=== PATIENT | female | born 1970 | race Caucasian/White ===

== ENCOUNTER 2024-09-13 06:37 | Emergency (ER) | payer OTHER, MEDICAID, SELFPAY ==
[2024-09-13] VITALS (40 sets, daily range): BP systolic 135–217; BP diastolic 81–128; PULSE 48–82; RESP 16–24; TEMP 36.3; O2SAT 87–100; BMI 27.4
--- NOTE | 2024-09-13 06:45 | EKG_ITS ---
[address] [address] Test Date: 2024-09-13 Pat Name: Alida Morelos Department: [facility] Room: Gender: Male [employer]: GENOVEVA JACQUI : 1970 Requested By: Order Number: [id number] Reading MD: John Lindsey Measurements Intervals Edwards Rate: 62 P: 52 DE: 148 QRS: 31 QRSD: 80 T: 43 QT: 458 QTc: 464 Interpretive Statements Normal sinus rhythm Electronically Signed On 09-19-2024 17:53:55 PDT by John Lindsey
--- NOTE | 2024-09-13 06:51 | DI.RAD.S_ITS ---
PROCEDURE: XR CHEST 1V INDICATIONS: Chest Pain TECHNIQUE: One view of the chest was acquired. COMPARISON: None. FINDINGS: Surgical changes and devices: None. Lungs and pleura: Lungs are clear. No pleural effusions or pneumothorax. Mediastinum: Mediastinal contours appear normal. Heart size is normal. Bones and chest wall: No suspicious bony lesions. Overlying soft tissues appear unremarkable. IMPRESSION: No acute cardiopulmonary pathology. No discrepancies. Dictated by: Peter Starr M.D. on 09/13/2024 at 9:00 Approved by: Peter Starr M.D. on 09/13/2024 at 9:00
--- NOTE | 2024-09-13 06:52 | ED.CHESTPAIN ---
HPI - Chest Pain <Hardy Brooks, DO - Last Filed: 09/13/24 19:31> General Chief Complaint: Chest Pain Stated Complaint: Chest and upper back pain; burining in chest Time Seen by Provider: 09/13/24 06:46 Source: patient Mode of arrival: Wheelchair Limitations: no limitations History of Present Illness HPI narrative: 54-year-old female history of GERD dyslipidemia elevated blood pressure and meth user presents with sudden onset chest pain radiating to the middle of the back. She endorses using meth 2 days ago. Patient states she had a similar presentation a few weeks ago when she was admitted 10 days to [facility] for elevated blood pressure chest pain radiating to the back but was not discharged on any blood pressure medicines. Patient states pain is sharp constant pain 10/10 and it takes her breath away from her. Nothing makes it better or worse. Other than what is stated 14 point review of system is negative. Related Data Home Medications ?Medication ?Instructions ?Recorded ?Confirmed atorvastatin 40 mg tablet 40 mg PO ONCE PM 09/13/24 09/13/24 omeprazole 40 mg capsule,delayed 40 mg PO QAM 09/13/24 09/13/24 release pantoprazole 40 mg tablet,delayed 40 mg PO QAM 09/13/24 09/13/24 release Allergies Allergy/AdvReac Type Severity Reaction Status Date / Time No Known Drug Allergies Allergy Verified 09/13/24 06:43 Review of Systems <Hardy Brooks, DO - Last Filed: 09/13/24 19:31> Review of Systems ROS Unobtainable: All systems reviewed & are unremarkable except as noted in HPI and below Patient History <Hardy Brooks DO - Last Filed: 09/13/24 19:31> Social History Smoking Status: Current every day smoker Smoking Status: Current every day smoker Exam <Hardy Brooks DO - Last Filed: 09/13/24 19:31> Narrative Exam Narrative: GENERAL: [54] year old patient appears stated age. Well-developed patient, in mild distress. HEAD: Atraumatic. Normocephalic. EYES: Pupils equal round and reactive. Extraocular motions intact. No scleral icterus. No injection or drainage. ENT: Nose without bleeding, purulent drainage. Throat without erythema, tonsillar hypertrophy or exudate. Airway patent. NECK: Trachea midline. Non tender CARDIOVASCULAR: Regular rate and rhythm without murmurs, gallops, or rubs. RESPIRATORY: Clear to auscultation. Breath sounds equal bilaterally. No wheezes, rales, or rhonchi. GASTROINTESTINAL: Abdomen soft, non-tender, nondistended. EXTREMITIES: No edema or joint tenderness. BACK: Nontender without deformity or crepitance. No flank tenderness. NEURO: AOx3. SKIN: No rash or erythema of visible areas Initial Vital Signs Initial Vital Signs: Vital Signs Temperature 97.4 F L 09/13/24 06:43 Pulse Rate 62 09/13/24 06:43 Respiratory Rate 24 09/13/24 06:43 Blood Pressure 212/105 H 09/13/24 06:43 Pulse Oximetry 100 09/13/24 06:43 Oxygen Delivery Method Room Air 09/13/24 06:43 <Sawyer Jimenez MD - Last Filed: 09/14/24 07:12> Initial Vital Signs Initial Vital Signs: Vital Signs Temperature 97.4 F L 09/13/24 06:43 Pulse Rate 62 09/13/24 06:43 Respiratory Rate 24 09/13/24 06:43 Blood Pressure 212/105 H 09/13/24 06:43 Pulse Oximetry 100 09/13/24 06:43 Oxygen Delivery Method Room Air 09/13/24 06:43 <Marco Aburto MD - Last Filed: 09/14/24 02:50> Initial Vital Signs Initial Vital Signs: Vital Signs Temperature 97.4 F L 09/13/24 06:43 Pulse Rate 62 09/13/24 06:43 Respiratory Rate 24 09/13/24 06:43 Blood Pressure 212/105 H 09/13/24 06:43 Pulse Oximetry 100 09/13/24 06:43 Oxygen Delivery Method Room Air 09/13/24 06:43 Course <Hardy Brooks DO - Last Filed: 09/13/24 19:31> Orders Ordered: Discontinued Medications Aspirin (Aspirin 81 Mg Chew Tab) 324 mg PO NOW ONE Stop: 09/13/24 06:52 Last Admin: 09/13/24 08:10 Dose: 324 mg Documented By: BT Hydralazine HCl (Hydralazine 20 Mg/Ml Vial) 10 mg IV Q6HR PRN PRN Reason: Hypertension Last Admin: 09/13/24 19:21 Dose: 10 mg Documented By: Admin: 09/13/24 08:09 Dose: 10 mg Documented By: BT Hydromorphone HCl (Hydromorphone 1 Mg Inj) 1 mg IV NOW ONE Stop: 09/13/24 08:27 Last Admin: 09/13/24 08:34 Dose: 1 mg Documented By: JESUS Hydromorphone HCl (Hydromorphone 1 Mg Inj) 1 mg IV NOW ONE Stop: 09/13/24 15:24 Last Admin: 09/13/24 15:29 Dose: 1 mg Documented By: JESUS Hydromorphone HCl (Hydromorphone Hcl 0.5 Mg/0.5 Ml Syringe) 0.5 mg IV NOW ONE Stop: 09/13/24 19:49 Last Admin: 09/13/24 20:04 Dose: 0.5 mg Documented By: RLDexter Hydromorphone HCl (Hydromorphone Hcl 0.5 Mg/0.5 Ml Syringe) 0.5 mg IV NOW ONE Stop: 09/13/24 19:58 Last Admin: 09/13/24 20:56 Dose: 0.5 mg Documented By: RLDexter Sodium Chloride (Normal Saline 0.9%) 1,000 mls @ 1,000 mls/hr IV BOLUS ONE Stop: 09/13/24 20:43 Last Infusion: 09/13/24 20:57 Dose: Infused Documented By: Admin: 09/13/24 19:48 Dose: 1,000 mls/hr Documented By: RLDexter Lactated Ringer's (Lactated Ringers) 1,000 mls @ 125 mls/hr IV CONT THOMPSON Last Infusion: 09/13/24 20:57 Dose: Infused Documented By: Admin: 09/13/24 19:48 Dose: 125 mls/hr Documented By: RLDexter Morphine Sulfate (Morphine 2 Mg/Ml Inj) 2 mg IV Q2HR PRN PRN Reason: Pain, Moderate (4-6) Last Admin: 09/13/24 19:22 Dose: 2 mg Documented By: Admin: 09/13/24 07:36 Dose: 2 mg Documented By: ATTILA Pantoprazole Sodium (Pantoprazole 40 Mg Vial) 40 mg IV NOW ONE Stop: 09/13/24 08:27 Last Admin: 09/13/24 08:33 Dose: 40 mg Documented By: BT Vital Signs Vital signs: Vital Signs - 8 hr 09/13/24 19:00 09/13/24 19:00 09/13/24 19:21 Pulse Rate 60 68 Respiratory Rate Blood Pressure 187/104 H 187/104 H Pulse Oximetry 97 Oxygen Delivery Method 09/13/24 19:26 09/13/24 19:26 09/13/24 19:30 Pulse Rate 70 Respiratory Rate Blood Pressure 170/99 H 155/94 H Pulse Oximetry 98 Oxygen Delivery Method 09/13/24 19:30 09/13/24 20:00 09/13/24 20:00 Pulse Rate 71 82 Respiratory Rate 21 Blood Pressure 145/85 H Pulse Oximetry 99 96 Oxygen Delivery Method Room Air 09/13/24 20:05 09/13/24 20:30 09/13/24 20:30 Pulse Rate 82 81 Respiratory Rate 17 Blood Pressure 145/85 H 135/82 Pulse Oximetry 93 Oxygen Delivery Method <Sawyer Jimenez MD - Last Filed: 09/14/24 07:12> Course Course Narrative: So far cardiac workup is negative. Patient is still in pain and so will add some morphine to help with her pain. Hydralazine will be used to try to lower her blood pressure due to her borderline bradycardia. A D-dimer was added as well. Orders Ordered: Discontinued Medications Aspirin (Aspirin 81 Mg Chew Tab) 324 mg PO NOW ONE Stop: 09/13/24 06:52 Last Admin: 09/13/24 08:10 Dose: 324 mg Documented By: JESUS Hydralazine HCl (Hydralazine 20 Mg/Ml Vial) 10 mg IV Q6HR PRN PRN Reason: Hypertension Last Admin: 09/13/24 19:21 Dose: 10 mg Documented By: Admin: 09/13/24 08:09 Dose: 10 mg Documented By: BT Hydromorphone HCl (Hydromorphone 1 Mg Inj) 1 mg IV NOW ONE Stop: 09/13/24 08:27 Last Admin: 09/13/24 08:34 Dose: 1 mg Documented By: BT Hydromorphone HCl (Hydromorphone 1 Mg Inj) 1 mg IV NOW ONE Stop: 09/13/24 15:24 Last Admin: 09/13/24 15:29 Dose: 1 mg Documented By: BT Hydromorphone HCl (Hydromorphone Hcl 0.5 Mg/0.5 Ml Syringe) 0.5 mg IV NOW ONE Stop: 09/13/24 19:49 Last Admin: 09/13/24 20:04 Dose: 0.5 mg Documented By: RLC Hydromorphone HCl (Hydromorphone Hcl 0.5 Mg/0.5 Ml Syringe) 0.5 mg IV NOW ONE Stop: 09/13/24 19:58 Last Admin: 09/13/24 20:56 Dose: 0.5 mg Documented By: RLC Sodium Chloride (Normal Saline 0.9%) 1,000 mls @ 1,000 mls/hr IV BOLUS ONE Stop: 09/13/24 20:43 Last Infusion: 09/13/24 20:57 Dose: Infused Documented By: Admin: 09/13/24 19:48 Dose: 1,000 mls/hr Documented By: RLC Lactated Ringer's (Lactated Ringers) 1,000 mls @ 125 mls/hr IV CONT THOMPSON Last Infusion: 09/13/24 20:57 Dose: Infused Documented By: Admin: 09/13/24 19:48 Dose: 125 mls/hr Documented By: RLC Morphine Sulfate (Morphine 2 Mg/Ml Inj) 2 mg IV Q2HR PRN PRN Reason: Pain, Moderate (4-6) Last Admin: 09/13/24 19:22 Dose: 2 mg Documented By: Admin: 09/13/24 07:36 Dose: 2 mg Documented By: ATTILA Pantoprazole Sodium (Pantoprazole 40 Mg Vial) 40 mg IV NOW ONE Stop: 09/13/24 08:27 Last Admin: 09/13/24 08:33 Dose: 40 mg Documented By: BT Reevaluation(s) Reevaluation #1: Upon re-evaluation, patient is still in some pain and MRCP did confirm a choledocholelithiasis picture measuring up to 3mm in size Reevaluation #2: Awaiting GI for ERCP. Patient is signed out to next physician Dr. Aburto Vital Signs Vital signs: Vital Signs - 8 hr 09/13/24 19:00 09/13/24 19:00 09/13/24 19:21 Pulse Rate 60 68 Respiratory Rate Blood Pressure 187/104 H 187/104 H Pulse Oximetry 97 Oxygen Delivery Method 09/13/24 19:26 09/13/24 19:26 09/13/24 19:30 Pulse Rate 70 Respiratory Rate Blood Pressure 170/99 H 155/94 H Pulse Oximetry 98 Oxygen Delivery Method 09/13/24 19:30 09/13/24 20:00 09/13/24 20:00 Pulse Rate 71 82 Respiratory Rate 21 Blood Pressure 145/85 H Pulse Oximetry 99 96 Oxygen Delivery Method Room Air 09/13/24 20:05 09/13/24 20:30 09/13/24 20:30 Pulse Rate 82 81 Respiratory Rate 17 Blood Pressure 145/85 H 135/82 Pulse Oximetry 93 Oxygen Delivery Method <Marco Aburto MD - Last Filed: 09/14/24 02:50> Orders Ordered: Discontinued Medications Aspirin (Aspirin 81 Mg Chew Tab) 324 mg PO NOW ONE Stop: 09/13/24 06:52 Last Admin: 09/13/24 08:10 Dose: 324 mg Documented By: BT Hydralazine HCl (Hydralazine 20 Mg/Ml Vial) 10 mg IV Q6HR PRN PRN Reason: Hypertension Last Admin: 09/13/24 19:21 Dose: 10 mg Documented By: Admin: 09/13/24 08:09 Dose: 10 mg Documented By: BT Hydromorphone HCl (Hydromorphone 1 Mg Inj) 1 mg IV NOW ONE Stop: 09/13/24 08:27 Last Admin: 09/13/24 08:34 Dose: 1 mg Documented By: BT Hydromorphone HCl (Hydromorphone 1 Mg Inj) 1 mg IV NOW ONE Stop: 09/13/24 15:24 Last Admin: 09/13/24 15:29 Dose: 1 mg Documented By: BT Hydromorphone HCl (Hydromorphone Hcl 0.5 Mg/0.5 Ml Syringe) 0.5 mg IV NOW ONE Stop: 09/13/24 19:49 Last Admin: 09/13/24 20:04 Dose: 0.5 mg Documented By: [facility] Hydromorphone HCl (Hydromorphone Hcl 0.5 Mg/0.5 Ml Syringe) 0.5 mg IV NOW ONE Stop: 09/13/24 19:58 Last Admin: 09/13/24 20:56 Dose: 0.5 mg Documented By: RLC Sodium Chloride (Normal Saline 0.9%) 1,000 mls @ 1,000 mls/hr IV BOLUS ONE Stop: 09/13/24 20:43 Last Infusion: 09/13/24 20:57 Dose: Infused Documented By: Admin: 09/13/24 19:48 Dose: 1,000 mls/hr Documented By: RLC Lactated Ringer's (Lactated Ringers) 1,000 mls @ 125 mls/hr IV CONT THOMPSON Last Infusion: 09/13/24 20:57 Dose: Infused Documented By: Admin: 09/13/24 19:48 Dose: 125 mls/hr Documented By: RLC Morphine Sulfate (Morphine 2 Mg/Ml Inj) 2 mg IV Q2HR PRN PRN Reason: Pain, Moderate (4-6) Last Admin: 09/13/24 19:22 Dose: 2 mg Documented By: Admin: 09/13/24 07:36 Dose: 2 mg Documented By: ATTILA Pantoprazole Sodium (Pantoprazole 40 Mg Vial) 40 mg IV NOW ONE Stop: 09/13/24 08:27 Last Admin: 09/13/24 08:33 Dose: 40 mg Documented By: BT Vital Signs Vital signs: Vital Signs - 8 hr 09/13/24 19:00 09/13/24 19:00 09/13/24 19:21 Pulse Rate 60 68 Respiratory Rate Blood Pressure 187/104 H 187/104 H Pulse Oximetry 97 Oxygen Delivery Method 09/13/24 19:26 09/13/24 19:26 09/13/24 19:30 Pulse Rate 70 Respiratory Rate Blood Pressure 170/99 H 155/94 H Pulse Oximetry 98 Oxygen Delivery Method 09/13/24 19:30 09/13/24 20:00 09/13/24 20:00 Pulse Rate 71 82 Respiratory Rate 21 Blood Pressure 145/85 H Pulse Oximetry 99 96 Oxygen Delivery Method Room Air 09/13/24 20:05 09/13/24 20:30 09/13/24 20:30 Pulse Rate 82 81 Respiratory Rate 17 Blood Pressure 145/85 H 135/82 Pulse Oximetry 93 Oxygen Delivery Method MDM - Chest Pain <Hardy Brooks DO - Last Filed: 09/13/24 19:31> Lab Data 09/13/24 06:45 09/13/24 06:45 Labs: Lab Results 09/13/24 09/13/24 09/13/24 Range/Units 06:45 08:05 08:05 WBC 10.2 (4.5-11.0) X10^3/uL RBC 4.91 (4.0-5.2) X10^6/uL Hgb 14.3 (12.0-16.0) g/dL Hct 41.3 (36-46) % MCV 84.2 (80-100) fL MCH 29.2 (26-34) PG MCHC 34.6 (30-36) % RDW 13.3 (11.6-14.8) % Plt Count 316 (150-400) X10^3/uL Neut % (Auto) 62.1 (50-75) % Lymph % (Auto) 27.8 (25-40) % [place] % (Auto) 7.1 (3-14) % Eos % (Auto) 1.8 L (2-4) % Baso % (Auto) 1.2 (0-2) % Neut # (Auto) 6300 (7433-1399) /uL Lymph # (Auto) 2800 (2944-9364) /uL [place] # (Auto) 700 (0-900) /uL Eos # (Auto) 200 (0-450) /uL Baso # (Auto) 100 (0-100) /uL PT 11.4 (9.4-12.5) SECONDS INR 1.0 (0.9-1.3) APTT 28 (25.1-36.5) SECONDS D-Dimer 318 (<500) ng/ml Sodium 139 (137-145) mmol/L Potassium 3.8 (3.4-5.1) mmol/L Chloride 104 (98-107) mmol/L Carbon Dioxide 27 (22-32) mmol/L BUN 14 (7-17) mg/dL Creatinine 0.72 (0.52-1.04) mg/dL Estimated GFR > 60 (>60) mL/min BUN/Creatinine Ratio 19.4 (6-22) Glucose 93 (70-99) mg/dL Calcium 9.5 (8.4-10.2) mg/dL Magnesium 1.9 (1.6-2.3) mg/dL Total Bilirubin 0.4 (0.2-1.3) mg/dL AST 37 H (14-36) IU/L ALT 59 H (<35) IU/L Alkaline Phosphatase 149 H (38-126) U/L Total Creatine Kinase 50 (30-135) U/L Troponin I < 0.012 (0.01-0.034) ng/mL NT-Pro-B Natriuret Pep 36 (<125) pg/mL Total Protein 8.1 (6.3-8.2) g/dL Albumin 4.3 (3.5-5.0) g/dL Globulin 3.8 (1.7-4.1) g/dL Albumin/Globulin Ratio 1.1 (1.0-2.8) Lipase 67 (23-300) U/L Urine Color Yellow Urine Appearance Sl cloudy Urine pH 6.5 Normal (4.5-8.0) Ur Specific [place] 1.010 (1.000-1.035) Urine Protein Negative (Negative) Urine Glucose (UA) Negative (Negative) g/dL Urine Ketones Negative (NEGATIVE) Urine Occult Blood Negative (Negative) Urine Nitrate Negative (Negative) Urine Bilirubin Negative (NEGATIVE) Urine Urobilinogen 0.2 (0.2) E.U./dL Ur Leukocyte Esterase Negative (NEGATIVE) Urine RBC 0-1/hpf (0-5/HPF) Urine WBC 0-1/hpf (0-5/HPF) Ur Squamous Epith Cells 1-5 /hpf (0-5/HPF) Amorphous Sediment 2+ Urine Bacteria Occasional (0-1) (None) Ur Culture Indicated? Cult not indicated Vol Urine Centrifuged 10ml (spun) U Opiates 300ng/mL cut Negative (Negative) Ur Oxycodone Screen Negative (Negative) Urine Methadone Screen Negative (Negative) Ur Barbiturates Screen Negative (Negative) U Tricyclic Antidepress Negative (Negative) Ur Phencyclidine Scrn Negative (Negative) Ur Amphetamines Screen Positive H (Negative) U Methamphetamines Scrn Positive H (Negative) Ur MDMA Scrn (Ecstasy) Negative (Negative) U Benzodiazepines Scrn Negative (Negative) Urine Cocaine Screen Negative (Negative) U Marijuana (THC) Screen Negative (Negative) Urine Specific [place] Normal (Normal) Ur Creatinine Normal (Normal) 09/13/24 Range/Units 09:15 WBC (4.5-11.0) X10^3/uL RBC (4.0-5.2) X10^6/uL Hgb (12.0-16.0) g/dL Hct (36-46) % MCV (80-100) fL MCH (26-34) PG MCHC (30-36) % RDW (11.6-14.8) % Plt Count (150-400) X10^3/uL Neut % (Auto) (50-75) % Lymph % (Auto) (25-40) % [place] % (Auto) (3-14) % Eos % (Auto) (2-4) % Baso % (Auto) (0-2) % Neut # (Auto) (4471-8237) /uL Lymph # (Auto) (5503-2556) /uL [place] # (Auto) (0-900) /uL Eos # (Auto) (0-450) /uL Baso # (Auto) (0-100) /uL PT (9.4-12.5) SECONDS INR (0.9-1.3) APTT (25.1-36.5) SECONDS D-Dimer (<500) ng/ml Sodium (137-145) mmol/L Potassium (3.4-5.1) mmol/L Chloride (98-107) mmol/L Carbon Dioxide (22-32) mmol/L BUN (7-17) mg/dL Creatinine (0.52-1.04) mg/dL Estimated GFR (>60) mL/min BUN/Creatinine Ratio (6-22) Glucose (70-99) mg/dL Calcium (8.4-10.2) mg/dL Magnesium (1.6-2.3) mg/dL Total Bilirubin (0.2-1.3) mg/dL AST (14-36) IU/L ALT (<35) IU/L Alkaline Phosphatase (38-126) U/L Total Creatine Kinase (30-135) U/L Troponin I < 0.012 (0.01-0.034) ng/mL NT-Pro-B Natriuret Pep (<125) pg/mL Total Protein (6.3-8.2) g/dL Albumin (3.5-5.0) g/dL Globulin (1.7-4.1) g/dL Albumin/Globulin Ratio (1.0-2.8) Lipase (23-300) U/L Urine Color Urine Appearance Urine pH (4.5-8.0) Ur Specific [place] (1.000-1.035) Urine Protein (Negative) Urine Glucose (UA) (Negative) g/dL Urine Ketones (NEGATIVE) Urine Occult Blood (Negative) Urine Nitrate (Negative) Urine Bilirubin (NEGATIVE) Urine Urobilinogen (0.2) E.U./dL Ur Leukocyte Esterase (NEGATIVE) Urine RBC (0-5/HPF) Urine WBC (0-5/HPF) Ur Squamous Epith Cells (0-5/HPF) Amorphous Sediment Urine Bacteria (None) Ur Culture Indicated? Vol Urine Centrifuged U Opiates 300ng/mL cut (Negative) Ur Oxycodone Screen (Negative) Urine Methadone Screen (Negative) Ur Barbiturates Screen (Negative) U Tricyclic Antidepress (Negative) Ur Phencyclidine Scrn (Negative) Ur Amphetamines Screen (Negative) U Methamphetamines Scrn (Negative) Ur MDMA Scrn (Ecstasy) (Negative) U Benzodiazepines Scrn (Negative) Urine Cocaine Screen (Negative) U Marijuana (THC) Screen (Negative) Urine Specific [place] (Normal) Ur Creatinine (Normal) ECG Data Interpretation: NSR HR 62 NV 148 QRS [address]-t wave change No previous EKG to compare against MDM Narrative Medical decision making narrative: Pt s/o to at shift change pending final disposition <Sawyer Jimenez MD - Last Filed: 09/14/24 07:12> Differential Diagnosis Differential diagnosis: Likely unstable angina pectoris and other (cholecystitis, choledocholelithiasis ) Lab Data Labs: Lab Results 09/13/24 09/13/24 09/13/24 Range/Units 06:45 08:05 08:05 WBC 10.2 (4.5-11.0) X10^3/uL RBC 4.91 (4.0-5.2) X10^6/uL Hgb 14.3 (12.0-16.0) g/dL Hct 41.3 (36-46) % MCV 84.2 (80-100) fL MCH 29.2 (26-34) PG MCHC 34.6 (30-36) % RDW 13.3 (11.6-14.8) % Plt Count 316 (150-400) X10^3/uL Neut % (Auto) 62.1 (50-75) % Lymph % (Auto) 27.8 (25-40) % [place] % (Auto) 7.1 (3-14) % Eos % (Auto) 1.8 L (2-4) % Baso % (Auto) 1.2 (0-2) % Neut # (Auto) 6300 (0219-6167) /uL Lymph # (Auto) 2800 (4790-5729) /uL [place] # (Auto) 700 (0-900) /uL Eos # (Auto) 200 (0-450) /uL Baso # (Auto) 100 (0-100) /uL PT 11.4 (9.4-12.5) SECONDS INR 1.0 (0.9-1.3) APTT 28 (25.1-36.5) SECONDS D-Dimer 318 (<500) ng/ml Sodium 139 (137-145) mmol/L Potassium 3.8 (3.4-5.1) mmol/L Chloride 104 (98-107) mmol/L Carbon Dioxide 27 (22-32) mmol/L BUN 14 (7-17) mg/dL Creatinine 0.72 (0.52-1.04) mg/dL Estimated GFR > 60 (>60) mL/min BUN/Creatinine Ratio 19.4 (6-22) Glucose 93 (70-99) mg/dL Calcium 9.5 (8.4-10.2) mg/dL Magnesium 1.9 (1.6-2.3) mg/dL Total Bilirubin 0.4 (0.2-1.3) mg/dL AST 37 H (14-36) IU/L ALT 59 H (<35) IU/L Alkaline Phosphatase 149 H (38-126) U/L Total Creatine Kinase 50 (30-135) U/L Troponin I < 0.012 (0.01-0.034) ng/mL NT-Pro-B Natriuret Pep 36 (<125) pg/mL Total Protein 8.1 (6.3-8.2) g/dL Albumin 4.3 (3.5-5.0) g/dL Globulin 3.8 (1.7-4.1) g/dL Albumin/Globulin Ratio 1.1 (1.0-2.8) Lipase 67 (23-300) U/L Urine Color Yellow Urine Appearance Sl cloudy Urine pH 6.5 Normal (4.5-8.0) Ur Specific [place] 1.010 (1.000-1.035) Urine Protein Negative (Negative) Urine Glucose (UA) Negative (Negative) g/dL Urine Ketones Negative (NEGATIVE) Urine Occult Blood Negative (Negative) Urine Nitrate Negative (Negative) Urine Bilirubin Negative (NEGATIVE) Urine Urobilinogen 0.2 (0.2) E.U./dL Ur Leukocyte Esterase Negative (NEGATIVE) Urine RBC 0-1/hpf (0-5/HPF) Urine WBC 0-1/hpf (0-5/HPF) Ur Squamous Epith Cells 1-5 /hpf (0-5/HPF) Amorphous Sediment 2+ Urine Bacteria Occasional (0-1) (None) Ur Culture Indicated? Cult not indicated Vol Urine Centrifuged 10ml (spun) U Opiates 300ng/mL cut Negative (Negative) Ur Oxycodone Screen Negative (Negative) Urine Methadone Screen Negative (Negative) Ur Barbiturates Screen Negative (Negative) U Tricyclic Antidepress Negative (Negative) Ur Phencyclidine Scrn Negative (Negative) Ur Amphetamines Screen Positive H (Negative) U Methamphetamines Scrn Positive H (Negative) Ur MDMA Scrn (Ecstasy) Negative (Negative) U Benzodiazepines Scrn Negative (Negative) Urine Cocaine Screen Negative (Negative) U Marijuana (THC) Screen Negative (Negative) Urine Specific [place] Normal (Normal) Ur Creatinine Normal (Normal) 09/13/24 Range/Units 09:15 WBC (4.5-11.0) X10^3/uL RBC (4.0-5.2) X10^6/uL Hgb (12.0-16.0) g/dL Hct (36-46) % MCV (80-100) fL MCH (26-34) PG MCHC (30-36) % RDW (11.6-14.8) % Plt Count (150-400) X10^3/uL Neut % (Auto) (50-75) % Lymph % (Auto) (25-40) % [place] % (Auto) (3-14) % Eos % (Auto) (2-4) % Baso % (Auto) (0-2) % Neut # (Auto) (2329-7408) /uL Lymph # (Auto) (9617-7435) /uL [place] # (Auto) (0-900) /uL Eos # (Auto) (0-450) /uL Baso # (Auto) (0-100) /uL PT (9.4-12.5) SECONDS INR (0.9-1.3) APTT (25.1-36.5) SECONDS D-Dimer (<500) ng/ml Sodium (137-145) mmol/L Potassium (3.4-5.1) mmol/L Chloride (98-107) mmol/L Carbon Dioxide (22-32) mmol/L BUN (7-17) mg/dL Creatinine (0.52-1.04) mg/dL Estimated GFR (>60) mL/min BUN/Creatinine Ratio (6-22) Glucose (70-99) mg/dL Calcium (8.4-10.2) mg/dL Magnesium (1.6-2.3) mg/dL Total Bilirubin (0.2-1.3) mg/dL AST (14-36) IU/L ALT (<35) IU/L Alkaline Phosphatase (38-126) U/L Total Creatine Kinase (30-135) U/L Troponin I < 0.012 (0.01-0.034) ng/mL NT-Pro-B Natriuret Pep (<125) pg/mL Total Protein (6.3-8.2) g/dL Albumin (3.5-5.0) g/dL Globulin (1.7-4.1) g/dL Albumin/Globulin Ratio (1.0-2.8) Lipase (23-300) U/L Urine Color Urine Appearance Urine pH (4.5-8.0) Ur Specific [place] (1.000-1.035) Urine Protein (Negative) Urine Glucose (UA) (Negative) g/dL Urine Ketones (NEGATIVE) Urine Occult Blood (Negative) Urine Nitrate (Negative) Urine Bilirubin (NEGATIVE) Urine Urobilinogen (0.2) E.U./dL Ur Leukocyte Esterase (NEGATIVE) Urine RBC (0-5/HPF) Urine WBC (0-5/HPF) Ur Squamous Epith Cells (0-5/HPF) Amorphous Sediment Urine Bacteria (None) Ur Culture Indicated? Vol Urine Centrifuged U Opiates 300ng/mL cut (Negative) Ur Oxycodone Screen (Negative) Urine Methadone Screen (Negative) Ur Barbiturates Screen (Negative) U Tricyclic Antidepress (Negative) Ur Phencyclidine Scrn (Negative) Ur Amphetamines Screen (Negative) U Methamphetamines Scrn (Negative) Ur MDMA Scrn (Ecstasy) (Negative) U Benzodiazepines Scrn (Negative) Urine Cocaine Screen (Negative) U Marijuana (THC) Screen (Negative) Urine Specific [place] (Normal) Ur Creatinine (Normal) Imaging Data CT scan - chest: Radiologist's Impression: Mild dilatation of the common bile duct, with mild intrahepatic biliary ductal dilatation. On these images, there is a potential distal common duct stone, although this may simply be artifactual. - If clinically appropriate, an MRCP could be considered for further evaluation (assuming that there is no contraindication to MRI). Scattered pulmonary nodules are seen, measuring up to 5 mm. Given the size of these nodules, no specific imaging follow-up is recommended, although attention should be paid to them on any future follow-up chest studies. mrcp showed folloiwn. Cholelithiasis without MR evidence of acute cholecystitis. 2. Very mild prominence of intrahepatic biliary ducts. Dilated common bile duct measures up to 12 mm in diameter with suggestion of distal choledocholithiasis measures up to 3 mm in size. 3. No pancreatic ductal dilatation. No discrete solid mass is seen in liver, spleen, or pancreas. 4. No peritoneal free fluid. MDM Narrative Medical decision making narrative: pt s/o from Dr. Brooks to al Dr. Jimenez at shift change as per below and ultimately found patient to have a choledochilthiasis and was transferred as per [facility] for a ercp. Pt s/o to at shift change pending final disposition 09/13/24, [id number]. Sign-out from Dr. Jimenez. 54-year-old female had chest pain radiating to the back, CTA chest negative, CT abdomen/pelvis showed some mild intrahepatic biliary ductal dilatation, common bile duct measured 12 mm in diameter., MRCP showed distal common bile duct stone 3 mm. Nonobstructive liver functions, but symptomatic common bile duct stone. Anticipate transfer to ERCP capable facility. Possible transfer to [facility]. Afebrile, sirs screen negative. Keep NPO. Normotensive, comfortable with non opioid pain medications thus far, declines further pain medication thus far. Assumed interim care. Lab data: White blood cell count 80232, hemoglobin 14.3, platelets adequate. Glucose 93. Normal renal function, serum CO2, electrolytes. Total bilirubin 0.4, AST 37, ALT 59, alkaline phosphatase 149. Lipase normal. Troponin negative/unmeasurable, BNP not elevated. UDS positive for amphetamine and methamphetamine, otherwise negative. Urinalysis negative. 1950, case discssued discussed with Dr. Caputo [facility] patient for transfer, transfer nurse on the line reported that Dr. Perales of [facility] would be consulting. Beds available now, we will arrange transport. <Marco Aburto MD - Last Filed: 09/14/24 02:50> Lab Data Attestation: I reviewed the patient's lab results. Lab results narrative: White blood cell count 66965, hemoglobin 14.3, platelets adequate. Glucose 93. Normal renal function, serum CO2, electrolytes. Total bilirubin 0.4, AST 37, ALT 59, alkaline phosphatase 149. Lipase normal. Troponin negative/unmeasurable, BNP not elevated. UDS positive for amphetamine and methamphetamine, otherwise negative. Urinalysis negative. Labs: Lab Results 09/13/24 09/13/24 09/13/24 Range/Units 06:45 08:05 08:05 WBC 10.2 (4.5-11.0) X10^3/uL RBC 4.91 (4.0-5.2) X10^6/uL Hgb 14.3 (12.0-16.0) g/dL Hct 41.3 (36-46) % MCV 84.2 (80-100) fL MCH 29.2 (26-34) PG MCHC 34.6 (30-36) % RDW 13.3 (11.6-14.8) % Plt Count 316 (150-400) X10^3/uL Neut % (Auto) 62.1 (50-75) % Lymph % (Auto) 27.8 (25-40) % [place] % (Auto) 7.1 (3-14) % Eos % (Auto) 1.8 L (2-4) % Baso % (Auto) 1.2 (0-2) % Neut # (Auto) 6300 (6170-3713) /uL Lymph # (Auto) 2800 (8150-8016) /uL [place] # (Auto) 700 (0-900) /uL Eos # (Auto) 200 (0-450) /uL Baso # (Auto) 100 (0-100) /uL PT 11.4 (9.4-12.5) SECONDS INR 1.0 (0.9-1.3) APTT 28 (25.1-36.5) SECONDS D-Dimer 318 (<500) ng/ml Sodium 139 (137-145) mmol/L Potassium 3.8 (3.4-5.1) mmol/L Chloride 104 (98-107) mmol/L Carbon Dioxide 27 (22-32) mmol/L BUN 14 (7-17) mg/dL Creatinine 0.72 (0.52-1.04) mg/dL Estimated GFR > 60 (>60) mL/min BUN/Creatinine Ratio 19.4 (6-22) Glucose 93 (70-99) mg/dL Calcium 9.5 (8.4-10.2) mg/dL Magnesium 1.9 (1.6-2.3) mg/dL Total Bilirubin 0.4 (0.2-1.3) mg/dL AST 37 H (14-36) IU/L ALT 59 H (<35) IU/L Alkaline Phosphatase 149 H (38-126) U/L Total Creatine Kinase 50 (30-135) U/L Troponin I < 0.012 (0.01-0.034) ng/mL NT-Pro-B Natriuret Pep 36 (<125) pg/mL Total Protein 8.1 (6.3-8.2) g/dL Albumin 4.3 (3.5-5.0) g/dL Globulin 3.8 (1.7-4.1) g/dL Albumin/Globulin Ratio 1.1 (1.0-2.8) Lipase 67 (23-300) U/L Urine Color Yellow Urine Appearance Sl cloudy Urine pH 6.5 Normal (4.5-8.0) Ur Specific [place] 1.010 (1.000-1.035) Urine Protein Negative (Negative) Urine Glucose (UA) Negative (Negative) g/dL Urine Ketones Negative (NEGATIVE) Urine Occult Blood Negative (Negative) Urine Nitrate Negative (Negative) Urine Bilirubin Negative (NEGATIVE) Urine Urobilinogen 0.2 (0.2) E.U./dL Ur Leukocyte Esterase Negative (NEGATIVE) Urine RBC 0-1/hpf (0-5/HPF) Urine WBC 0-1/hpf (0-5/HPF) Ur Squamous Epith Cells 1-5 /hpf (0-5/HPF) Amorphous Sediment 2+ Urine Bacteria Occasional (0-1) (None) Ur Culture Indicated? Cult not indicated Vol Urine Centrifuged 10ml (spun) U Opiates 300ng/mL cut Negative (Negative) Ur Oxycodone Screen Negative (Negative) Urine Methadone Screen Negative (Negative) Ur Barbiturates Screen Negative (Negative) U Tricyclic Antidepress Negative (Negative) Ur Phencyclidine Scrn Negative (Negative) Ur Amphetamines Screen Positive H (Negative) U Methamphetamines Scrn Positive H (Negative) Ur MDMA Scrn (Ecstasy) Negative (Negative) U Benzodiazepines Scrn Negative (Negative) Urine Cocaine Screen Negative (Negative) U Marijuana (THC) Screen Negative (Negative) Urine Specific [place] Normal (Normal) Ur Creatinine Normal (Normal) 09/13/24 Range/Units 09:15 WBC (4.5-11.0) X10^3/uL RBC (4.0-5.2) X10^6/uL Hgb (12.0-16.0) g/dL Hct (36-46) % MCV (80-100) fL MCH (26-34) PG MCHC (30-36) % RDW (11.6-14.8) % Plt Count (150-400) X10^3/uL Neut % (Auto) (50-75) % Lymph % (Auto) (25-40) % [place] % (Auto) (3-14) % Eos % (Auto) (2-4) % Baso % (Auto) (0-2) % Neut # (Auto) (5991-5275) /uL Lymph # (Auto) (3102-1135) /uL [place] # (Auto) (0-900) /uL Eos # (Auto) (0-450) /uL Baso # (Auto) (0-100) /uL PT (9.4-12.5) SECONDS INR (0.9-1.3) APTT (25.1-36.5) SECONDS D-Dimer (<500) ng/ml Sodium (137-145) mmol/L Potassium (3.4-5.1) mmol/L Chloride (98-107) mmol/L Carbon Dioxide (22-32) mmol/L BUN (7-17) mg/dL Creatinine (0.52-1.04) mg/dL Estimated GFR (>60) mL/min BUN/Creatinine Ratio (6-22) Glucose (70-99) mg/dL Calcium (8.4-10.2) mg/dL Magnesium (1.6-2.3) mg/dL Total Bilirubin (0.2-1.3) mg/dL AST (14-36) IU/L ALT (<35) IU/L Alkaline Phosphatase (38-126) U/L Total Creatine Kinase (30-135) U/L Troponin I < 0.012 (0.01-0.034) ng/mL NT-Pro-B Natriuret Pep (<125) pg/mL Total Protein (6.3-8.2) g/dL Albumin (3.5-5.0) g/dL Globulin (1.7-4.1) g/dL Albumin/Globulin Ratio (1.0-2.8) Lipase (23-300) U/L Urine Color Urine Appearance Urine pH (4.5-8.0) Ur Specific [place] (1.000-1.035) Urine Protein (Negative) Urine Glucose (UA) (Negative) g/dL Urine Ketones (NEGATIVE) Urine Occult Blood (Negative) Urine Nitrate (Negative) Urine Bilirubin (NEGATIVE) Urine Urobilinogen (0.2) E.U./dL Ur Leukocyte Esterase (NEGATIVE) Urine RBC (0-5/HPF) Urine WBC (0-5/HPF) Ur Squamous Epith Cells (0-5/HPF) Amorphous Sediment Urine Bacteria (None) Ur Culture Indicated? Vol Urine Centrifuged U Opiates 300ng/mL cut (Negative) Ur Oxycodone Screen (Negative) Urine Methadone Screen (Negative) Ur Barbiturates Screen (Negative) U Tricyclic Antidepress (Negative) Ur Phencyclidine Scrn (Negative) Ur Amphetamines Screen (Negative) U Methamphetamines Scrn (Negative) Ur MDMA Scrn (Ecstasy) (Negative) U Benzodiazepines Scrn (Negative) Urine Cocaine Screen (Negative) U Marijuana (THC) Screen (Negative) Urine Specific [place] (Normal) Ur Creatinine (Normal) Imaging Data MRI abdomen noncontrast: Radiologist's Impression: [address] [address] Magnetic Resonance Report Signed Patient: Alida Morelos MR#: [id number] : 1970 Acct:[id number] Age/Sex: 54 / F Date of Service: 09/13/24 Loc: ED Accession Number: [id number] Procedure: MR abdomen wo con Ordering Provider: Sawyer Jimenez MD PROCEDURE: MR ABDOMEN WO CON INDICATIONS: common bile duct dilated TECHNIQUE: Coronal HASTE through the abdomen, axial 2-D FLASH in- and [id number], and breath-hold T2 FSE with fat saturation through the biliary system and pancreas. Oblique coronal and axial thin-slice HASTE, radial thick-slab HASTE centered on the extrahepatic bile ducts. Intravenous secretin: Not requested. COMPARISON: [facility], CT, CT CHEST ABD PEL W CON, 09/13/2024, 9:20. FINDINGS: Image quality: Diagnostic. Gallbladder: Numerous stones are seen in dependent portion of gallbladder lumen. No gallbladder wall thickening or pericholecystic fluid. Biliary ducts: There is very mild intrahepatic biliary ductal dilatation. Dilatation of common bile duct measures up to 12 mm in diameter. Small intraluminal filling defects are noted in distal common bile duct measures up to 3 mm in size suggestive of choledocholithiasis. Pancreas: No ductal dilation. OTHER: Lung bases: Unremarkable. Liver: No solid mass. Spleen: Size is within normal limits. Adrenal Glands: No adrenal nodules. Kidneys and Ureters: No hydronephrosis. No solid mass. No complex renal cystic lesion which requires follow up. Stomach and Bowel: Normal colonic caliber, without significant wall thickening. Peritoneum: No abnormal intraperitoneal fluid. Ventral Wall: No hernia. Abdominal Nodes: No retroperitoneal or mesenteric adenopathy by size criteria. Vessels: Aorta and inferior vena cava are normal in size. Bones: No aggressive osseous abnormality. IMPRESSION: 1. Cholelithiasis without MR evidence of acute cholecystitis. 2. Very mild prominence of intrahepatic biliary ducts. Dilated common bile duct measures up to 12 mm in diameter with suggestion of distal choledocholithiasis measures up to 3 mm in size. 3. No pancreatic ductal dilatation. No discrete solid mass is seen in liver, spleen, or pancreas. 4. No peritoneal free fluid. Dictated by: Peter Starr M.D. on 09/13/2024 at 13:35 Approved by: Peter Starr M.D. on 09/13/2024 at 13:40 [facility] Narrative Medical decision making narrative: Pt s/o to at shift change pending final disposition 09/13/24, 1830, [place]. Sign-out from Dr. Jimenez. 54-year-old female had chest pain radiating to the back, CTA chest negative, CT abdomen/pelvis showed some mild intrahepatic biliary ductal dilatation, common bile duct measured 12 mm in diameter., MRCP showed distal common bile duct stone 3 mm. Nonobstructive liver functions, but symptomatic common bile duct stone. Anticipate transfer to ERCP capable facility. Possible transfer to [facility]. Afebrile, sirs screen negative. Keep NPO. Normotensive, comfortable with non opioid pain medications thus far, declines further pain medication thus far. Assumed interim care. Lab data: White blood cell count 88378, hemoglobin 14.3, platelets adequate. Glucose 93. Normal renal function, serum CO2, electrolytes. Total bilirubin 0.4, AST 37, ALT 59, alkaline phosphatase 149. Lipase normal. Troponin negative/unmeasurable, BNP not elevated. UDS positive for amphetamine and methamphetamine, otherwise negative. Urinalysis negative. 1950, case discssued discussed with Dr. Caputo hospitalist [facility] who accepts patient for transfer, transfer nurse on the line reported that Dr. Perales of [facility] would be consulting. Beds available now, we will arrange transport. Discharge Plan Departure Patient Disposition: [facility] Clinical Impression: Chest pain, Choledocholithiasis Prescriptions: No Action atorvastatin 40 mg tablet 40 mg PO ONCE PM omeprazole 40 mg capsule,delayed release(DR/EC) 40 mg PO QAM pantoprazole 40 mg tablet,delayed release (DR/EC) 40 mg PO QAM
[2024-09-13 07:02] LABS: INR 1.0 (0.9-1.3); Prothrombin Time 11.4 SECONDS (9.4-12.5)
[2024-09-13 07:04] LABS: PTT Partial Thromboplastin Tim 28 SECONDS (25.1-36.5)
[2024-09-13 07:06] LABS: Alanine Aminotransferase 59 IU/L (<35); Albumin 4.3 g/dL (3.5-5.0); Albumin Globulin Ratio 1.1 (1.0-2.8); Alkaline Phosphatase 149 U/L (38-126); Blood Urea Nitrogen 14 mg/dL (7-17); Calcium 9.5 mg/dL (8.4-10.2); Carbon Dioxide 27 mmol/L (22-32); Chloride 104 mmol/L (98-107); Creatine Kinase 50 U/L (30-135); Estimated Glomerular Filt Rate > 60 mL/min (>60); Globulin 3.8 g/dL (1.7-4.1); Glucose 93 mg/dL (70-99); HEMOLYSIS < 15 (0-50); Lipase 67 U/L (23-300); Magnesium 1.9 mg/dL (1.6-2.3); Potassium 3.8 mmol/L (3.4-5.1); Sodium 139 mmol/L (137-145); Total Protein 8.1 g/dL (6.3-8.2)
[2024-09-13 07:17] LABS: Add Manual Diff / Slide Review NO; Hematocrit 41.3 % (36-46); Hemoglobin 14.3 g/dL (12.0-16.0); Lymphocytes Absolute Auto 2800 /uL (1100-4500); Mean Corpuscular HGB Conc 34.6 % (30-36); Mean Corpuscular Hemoglobin 29.2 PG (26-34); Mean Corpuscular Volume 84.2 fL (80-100); NT-proBNP (BNP-Adult 18+) 36 pg/mL (<125); Platelet Count 316 X10^3/uL (150-400); Troponin I < 0.012 ng/mL (0.01-0.034)
[2024-09-13] MEDS: MORPHINE 2 MG/ML INJ IV ×2 (07:36→19:22)
[2024-09-13] MEDS: hydrALAZINE 20 MG/ML VIAL 10 MG IV ×2 (08:09→19:21)
[2024-09-13] MEDS: ASPIRIN 81 MG CHEW TAB 324 MG PO (08:10)
--- NOTE | 2024-09-13 08:23 | PC.NURSE ---
done by previous RN
--- NOTE | 2024-09-13 08:28 | DI.CT.S_ITS ---
PROCEDURE: CT CHEST ABD PEL W CON INDICATIONS: chest/abdominal pain TECHNIQUE: After the administration of intravenous contrast, 5 mm thick sections acquired from the lung apices to the symphysis. 5 mm coronal and sagittal reformats were performed, with additional 7 mm MIP reformats through the lungs. For radiation dose reduction, the following was used: automated exposure control, adjustment of mA and/or kV according to patient size. COMPARISON: , CR, XR CHEST 1V, 09/13/2024, 6:47. FINDINGS: Image quality: Excellent. CHEST: Lower Neck: No enlarged lymph nodes. Thyroid: No thyroid nodules which require sonographic follow up, per consensus guidelines. Axillae: No enlarged lymph nodes. Chest Wall: Unremarkable. Lungs and Pleura: Several scattered pulmonary nodules are seen. There is a subpleural right middle lobe pulmonary nodule measuring 5 mm, as on series 5, image 188. Within the left lower lobe, there is a para pulmonary nodules on series 5, image 154, with the larger measuring 4 mm. On the left, there is a mild amount of thickening seen in along the oblique fissure, as on series 5, image 145. Within the left lower lobe, there is a tiny subpleural nodule, as on series 5, image 126, measuring 2-3 mm. Heart: Heart size is normal. No pericardial effusion. Thoracic Vessels: The aorta and pulmonary arteries demonstrate normal size. Mediastinum and [place]: No enlarged lymph nodes. Esophagus: No wall thickening. No significant hiatal hernia. ABDOMEN: Liver: No solid mass. Gallbladder: No radiopaque gallstones or wall thickening. Biliary ducts: The common bile duct is mildly enlarged measuring up to 14 mm. There is mild intrahepatic biliary ductal dilatation. A potential distal common duct stone is seen, as on series 2, image 110. Pancreas: No ductal dilation. Spleen: Size is within normal limits. Adrenal Glands: No adrenal nodules. Kidneys and Ureters: No hydronephrosis. No solid mass. No complex renal cystic lesion which requires follow up. Stomach and Bowel: Normal colonic caliber, without significant wall thickening. The cecum is medialized. A normal appendix is noted. No dilated loops of small bowel are seen. Peritoneum: No abnormal intraperitoneal fluid. No free air. Ventral Wall: A mild periumbilical hernia is seen, containing fat. Abdominal Nodes: No retroperitoneal or mesenteric adenopathy by size criteria. Vessels: Aorta and inferior vena cava are normal in size. Atherosclerotic calcification is noted. PELVIS: Pelvic Organs: No adnexal masses are seen on either side. An apparent stabilization clip can be seen on the left. Bladder: No bladder wall thickening, accounting for underdistention. Pelvic Nodes: No enlarged lymph nodes. Miscellaneous: No inguinal hernias are seen. Bones: No aggressive osseous abnormality. IMPRESSION: Mild dilatation of the common bile duct, with mild intrahepatic biliary ductal dilatation. On these images, there is a potential distal common duct stone, although this may simply be artifactual. - If clinically appropriate, an MRCP could be considered for further evaluation (assuming that there is no contraindication to MRI). Scattered pulmonary nodules are seen, measuring up to 5 mm. Given the size of these nodules, no specific imaging follow-up is recommended, although attention should be paid to them on any future follow-up chest studies. Additional findings: Mild fat containing periumbilical hernia Medialized location of the cecum Normal appendix Apparent sterilization clip on the left Dictated by: Raulito Roche M.D. on 09/13/2024 at 9:02 Approved by: Raulito Roche M.D. on 09/13/2024 at 9:09
[2024-09-13] MEDS: PANTOPRAZOLE 40 MG VIAL IV (08:33)
[2024-09-13 08:34] LABS: Appearance Urine UA SL CLOUDY; Bilirubin Urine UA NEGATIVE (NEGATIVE); Color Urine UA YELLOW; Glucose Urine UA NEGATIVE (Negative); Ketones Urine UA NEGATIVE (NEGATIVE); Leukocyte Esterase Urine UA NEGATIVE (NEGATIVE); Nitrite Urine UA NEGATIVE (Negative); Occult Blood Urine UA NEGATIVE (Negative); Protein Urine UA NEGATIVE (Negative); Specific Gravity Urine UA 1.010 (1.000-1.035); Urobilinogen Urine UA 0.2 E.U./dL (0.2)
[2024-09-13] MEDS: HYDROMORPHONE 1 MG INJ IV ×2 (08:34→15:29)
--- NOTE | 2024-09-13 08:39 | PC.NURSE ---
patient reports continuing having burning (points to epigastric area) patient states she did eat pizza before going to bed, reported to Dr. duarte, orders received.
[2024-09-13 08:49] LABS: pH Urine UA 6.5 (4.5-8.0)
[2024-09-13 08:50] LABS: Culture Indicated Urine Cult Not Indicated; UR Morphine/Opiate cutoff 300 Negative (Negative); Ur Specific Gravity Normal (Normal); Urine MDMA Negative (Negative); Urine Methamphetamines Positive (Negative); Urine Tetrahydrocannabinol Negative (Negative); Urine Tricyclic Antidepressant Negative (Negative)
[2024-09-13 09:40] LABS: Troponin I < 0.012 ng/mL (0.01-0.034)
--- NOTE | 2024-09-13 10:15 | DI.MRI.S_ITS ---
PROCEDURE: MR ABDOMEN WO CON INDICATIONS: common bile duct dilated TECHNIQUE: Coronal HASTE through the abdomen, axial 2-D FLASH in- and [id number], and breath-hold T2 FSE with fat saturation through the biliary system and pancreas. Oblique coronal and axial thin-slice HASTE, radial thick-slab HASTE centered on the extrahepatic bile ducts. Intravenous secretin: Not requested. COMPARISON: [facility], CT, CT CHEST ABD PEL W CON, 09/13/2024, 9:20. FINDINGS: Image quality: Diagnostic. Gallbladder: Numerous stones are seen in dependent portion of gallbladder lumen. No gallbladder wall thickening or pericholecystic fluid. Biliary ducts: There is very mild intrahepatic biliary ductal dilatation. Dilatation of common bile duct measures up to 12 mm in diameter. Small intraluminal filling defects are noted in distal common bile duct measures up to 3 mm in size suggestive of choledocholithiasis. Pancreas: No ductal dilation. OTHER: Lung bases: Unremarkable. Liver: No solid mass. Spleen: Size is within normal limits. Adrenal Glands: No adrenal nodules. Kidneys and Ureters: No hydronephrosis. No solid mass. No complex renal cystic lesion which requires follow up. Stomach and Bowel: Normal colonic caliber, without significant wall thickening. Peritoneum: No abnormal intraperitoneal fluid. Ventral Wall: No hernia. Abdominal Nodes: No retroperitoneal or mesenteric adenopathy by size criteria. Vessels: Aorta and inferior vena cava are normal in size. Bones: No aggressive osseous abnormality. IMPRESSION: 1. Cholelithiasis without MR evidence of acute cholecystitis. 2. Very mild prominence of intrahepatic biliary ducts. Dilated common bile duct measures up to 12 mm in diameter with suggestion of distal choledocholithiasis measures up to 3 mm in size. 3. No pancreatic ductal dilatation. No discrete solid mass is seen in liver, spleen, or pancreas. 4. No peritoneal free fluid. Dictated by: Peter Starr M.D. on 09/13/2024 at 13:35 Approved by: Peter Starr M.D. on 09/13/2024 at 13:40
--- NOTE | 2024-09-13 12:42 | PC.NURSE ---
Pt going to MRI
--- NOTE | 2024-09-13 13:57 | PC.NURSE ---
patient returned from MRCP.
[2024-09-13] MEDS: SODIUM CHLORIDE 0.9% 1,000 ML 1000 ML IV (19:48)
[2024-09-13] MEDS: LACTATED RINGERS 1,000 ML 125 ML IV (19:48)
== END 2024-09-13 20:50 | disposition short-term general hospital (02) ==
PROVIDERS: Family Medicine; Emergency Provider Emergency Medicine
DX: K80.50 Calculus of bile duct without cholangitis or cholecystitis without obstruction (principal); R07.9 Chest pain, unspecified
CPT/HCPCS: 36415; 71045; 71260; 74177; 74181; 80053; 80305; 81001; 82550; 83690; 83735; 83880; 84484; 85025; 85379; 85610; 85730; 93005; 96361; 96374; 96375; 96376; 99284; J0360; J1171; J2270; J2470; Q9967